=== PATIENT | female | born 1985 | race Caucasian/White ===

== ENCOUNTER 2017-01-21 08:03 | Emergency (ER) | payer BC, OTHER ==
[2017-01-21 08:22] VITALS: BP 117/83
--- NOTE | 2017-01-21 10:17 | Emergency Department Report ---
ED General Adult HPI - General Chief complaint: Skin Rash Stated complaint: VAGINAL ITCHING/BURNING Time Seen by Provider: 01/21/17 10:07 Source: patient Mode of arrival: Ambulatory Limitations: No Limitations - History of Present Illness Initial comments: PT c/o her "private area" being irritated. Pt states she shaved last week and on Tuesday she noticed one bump. PT states she has been itching and scratching and last night, she noticed more bumps with pus. PT denies hx of STD and states she had her annual exam at her OB/GYNs office last month. PT states her five year old son was just dx with staph infection and she is concerned that she may have caught it. Complaint: rash -: Gradual, week(s) (1) Location: genitals Severity scale (0 -10): 0 Quality: other (pt denies pain but states itching is 10/10 ) Consistency: constant Improves with: none Associated Symptoms: denies: fever/chills, nausea/vomiting Treatments Prior to Arrival: none - Related Data Previous Rx's Medication Instructions Recorded Last Taken Type Sulfamethoxazole/Trimethoprim 1 each PO BID #14 tablet 01/21/17 Unknown Rx [Bactrim DS TAB] methOCARBAMOL [Robaxin TAB] 500 mg PO Q6H PRN #15 tablet 01/21/17 Unknown Rx Allergies Allergy/AdvReac Type Severity Reaction Status Date / Time No Known Allergies Allergy Verified 01/22/15 07:28 ED Review of Systems ROS: Stated complaint: VAGINAL ITCHING/BURNING Other details as noted in HPI Comment: All other systems reviewed and negative Constitutional: denies: fever, malaise Gastrointestinal: denies: abdominal pain, nausea, vomiting Genitourinary: denies: abnormal menses (lmp 9-17) Skin: rash ED Past Medical Hx - Past Medical History Previous Medical History?: No - Surgical History Past Surgical History?: Yes Additional Surgical History: tonsillectomy, x 1(2010) - Social History Smoking Status: Never Smoker Substance Use Type: Alcohol - Medications Home Medications: Home Medications Medication Instructions Recorded Confirmed Last Taken Type Sulfamethoxazole/Trimethoprim 1 each PO BID #14 tablet 01/21/17 Unknown Rx [Bactrim DS TAB] methOCARBAMOL [Robaxin TAB] 500 mg PO Q6H PRN #15 tablet 01/21/17 Unknown Rx ED Physical Exam - General Limitations: No Limitations General appearance: alert, in no apparent distress - Head Head exam: Present: atraumatic, normocephalic, normal inspection - Eye Eye exam: Present: normal appearance, PERRL, EOMI. Absent: conjunctival injection - ENT ENT exam: Present: normal exam, mucous membranes moist, normal external ear exam - Neck Neck exam: Present: normal inspection, full ROM - Respiratory Respiratory exam: Present: normal lung sounds bilaterally. Absent: respiratory distress, wheezes - Cardiovascular Cardiovascular Exam: Present: regular rate, normal rhythm, normal heart sounds - GI/Abdominal GI/Abdominal exam: Present: soft. Absent: distended, tenderness, guarding, rebound - External exam: Present: other (left inguinal canal with folliculitis. scattered areas of circular areas of broken skin, all seem to be surrounding a hair follicle ) - Extremities Exam Extremities exam: Present: normal inspection, full ROM, normal capillary refill - Back Exam Back exam: Present: normal inspection, full ROM. Absent: tenderness, CVA tenderness (R), CVA tenderness (L) - Neurological Exam Neurological exam: Present: alert, oriented X3, normal gait - Psychiatric Psychiatric exam: Present: normal affect, normal mood - Skin Skin exam: Present: warm, dry, normal color, rash. Absent: intact ED Course Vital Signs 01/21/17 08:10 Temperature 98.2 F Pulse Rate 94 H Respiratory 18 Rate Blood Pressure 117/83 O2 Sat by Pulse 100 Oximetry - Reevaluation(s) Reevaluation #1: 01/21/17 10:20 PT's TDAP vaccine is up to date 01/21/17 10:20 PT aware of plan of care. Reevaluation #2: 01/21/17 12:13 Swab available for HSV culture now. PT tolerated collection well. PT states from sitting on hospital stretcher, she aggravated her low back. PT States she gets frequent episodes of low back pain from frequent lifting at work. PT states she was seen by UC 3 weeks ago and given Ultram. PT states Ultram did not help. PT does not have any saddle anesthesia. PT denies incontinence. lumbar paraspinal muscles tender at this time. PT aware will given RX for Robaxin. PT advised to avoid lifting heavy objects in the next few days. - Pulse Oximetry Interpretation Digit-Finger Initial Pulse Oximetry Readin Actions Taken: none ED Medical Decision Making - Differential Diagnosis hsv, folliculitis Critical Care Time: No Critical care attestation.: If time is entered above; I have spent that time in minutes in the direct care of this critically ill patient, excluding procedure time. ED Disposition Clinical Impression: Folliculitis Low back pain Qualifiers: Chronicity: acute Back pain laterality: bilateral Sciatica presence: without sciatica Qualified Code(s): M54.5 - Low back pain Disposition: TO HOME OR SELFCARE Is pt being admited?: No Does the pt Need Aspirin: No Condition: Stable Instructions: Low Back Strain (ED), Acute Low Back Pain (ED), Folliculitis (ED) Additional Instructions: No shaving - throw out your razor Warm compresses Do not pick at rash You can take OTC Benadryl for the itching No driving or Alcohol after taking Robaxin follow up with PCP in 3-5 days Follow up with medial records in 3-5 days to obtain copies of your lab work Prescriptions: methOCARBAMOL [Robaxin TAB] 500 mg PO Q6H PRN #15 tablet PRN Reason: Muscle Spasm Sulfamethoxazole/Trimethoprim [Bactrim DS TAB] 1 each PO BID #14 tablet Referrals: PRIMARY CARE, [Primary Care Provider] - 3-5 Days PANCHO OAKES MD [Staff Physician] - 3-5 Days KAMINI PARSON MD [Staff Physician] - 3-5 Days [facility] [Outside] - 3-5 Days [facility] [Outside] - 3-5 Days Time of Disposition: 12:17
== END 2017-01-21 12:32 | disposition home or self-care (01) ==
LOC: ED 08:03
DX: L73.9 Follicular disorder, unspecified (principal); M54.5 Low back pain
CPT/HCPCS: 36415; 87255; 99283

== ENCOUNTER 2018-12-17 10:50 | Emergency (ER) | payer SELFPAY ==
[2018-12-17 10:58] VITALS: BP 123/82
[2018-12-17] MEDS ORDERED: TORADOL IM ONE (12:07)
[2018-12-17] MEDS ORDERED: CLEOCIN PO ONE (12:07)
--- NOTE | 2018-12-17 12:07 | Emergency Department Report ---
Upper Extremity - HPI Chief Complaint: Extremity Injury, Upper Stated Complaint: SPIDER BITE/(R) ARM PAIN Time Seen by Provider: 12/17/18 12:02 Upper Extremity: Right Arm (redness and swelling from insect bite) Occurred When: 1 Day Mechanism: Other (possible spider bite) Severity: severe (8/10) Symptoms: Yes Pain with Movement (right arm), Yes Limited Range of Movement, Yes Swelling (redness), No Deformity, No Numbness, No Weakness, No Bruisi ng/Ecchymosis, No Laceration or Abrasion Other History: 33-year-old patient reported that she thinks she has been bitten by a spider but not sure to her right arm and reports that she woke up today and her arm was red swollen and painful. Pain is 8/10 throbbing and aching. No medication taken. Denies any fever or chills. Denies any nausea or vomiting. Denies any numbness or tingling to extremities or radiation of pain to extremity. Denies any difficulty moving fingers of both hands. ED Review of Systems ROS: Stated complaint: SPIDER BITE/(R) ARM PAIN Other details as noted in HPI Constitutional: denies: chills, fever ENT: denies: throat pain Respiratory: denies: cough, shortness of breath, wheezing Cardiovascular: denies: chest pain, palpitations, edema, syncope Gastrointestinal: denies: abdominal pain, nausea, vomiting Musculoskeletal: arthralgia. denies: back pain, joint swelling, myalgia Skin: rash, change in color Neurological: denies: headache, numbness, paresthesias, confusion, abnormal gait, vertigo ED Past Medical Hx - Past Medical History Previous Medical History?: No Hx Arthritis: No Hx Asthma: No - Surgical History Past Surgical History?: Yes Additional Surgical History: tonsillectomy, x 1(2010) - Family History Family history: no significant - Social History Smoking Status: Never Smoker Substance Use Type: Alcohol - Medications Home Medications: Home Medications Medication Instructions Recorded Confirmed Last Taken Type Sulfamethoxazole/Trimethoprim 1 each PO BID #14 tablet 01/21/17 Unknown Rx [Bactrim DS TAB] methOCARBAMOL [Robaxin TAB] 500 mg PO Q6H PRN #15 tablet 01/21/17 Unknown Rx Acetaminophen/Codeine [Tylenol 1 tab PO Q6H PRN #12 tab 12/17/18 Unknown Rx /Codeine # 3 tab] Clindamycin [Clindamycin CAP] 300 mg PO Q8H 10 Days #30 cap 12/17/18 Unknown Rx Ibuprofen [Motrin] 800 mg PO Q8HR PRN #12 tablet 12/17/18 Unknown Rx Upper Extremity Exam - Exam General: Vital signs noted. No distress. Alert and acting appropriately. This is a 33-year-old female well-nourished well-developed in no acute distress Head and Torso: No HEENT Abnormality, No Neck Tenderness, No Chest/Lungs Abnormality, No Abdominal Tenderness, No Back Tenderness Shoulder Exam: Yes Normal Range of Motion in Shoulder, No Shoulder Tenderness, No Clavicle Tenderness, No Shoulder Deformity, No AC Joint Tenderness Arm Exam: No Arm Deformity Elbow: Yes Normal Range of Motion in Elbow, No Elbow Tenderness, No Elbow Deformity Forearm: Yes Pain with Supination (to up her arm), No Forearm Tenderness, No Forearm Deformity, No Pain with Pronation Wrist: Yes Normal ROM in Wrist, No Wrist Tenderness, No Wrist Deformity, No Snuf fbox Tenderness, No Pain with Axial Thumb Compression Hand: Yes Digit Tenderness, Yes Normal ROM in Digit(s), No Hand Tenderness, No Hand Deformity, No Digit(s) Deformity (patient able to move all her fingers without any rigidity. No tenderness to palpate the fingers or hands and bilaterally.), No Tendon Dysfunction CMS Exam: Yes Normal Distal Pulses (radial and ulnar pulses are 2+ bilaterally), Yes Normal Capillary Refill (less than 2 seconds), Yes Normal Distal Sensation, No Broken Skin Front/Back of Body, Lg (Color): 1 - Noted 6x 6 , erythema area with mils sweling to rt arm proximally.Point of entru noted. TTP ED Course Vital Signs 12/17/18 10:56 Temperature 98.7 F Pulse Rate 72 Respiratory 18 Rate Blood Pressure 123/82 O2 Sat by Pulse 100 Oximetry - Reevaluation(s) Reevaluation #1: 12/17/18 13:07 Patient received Toradol 60 mg IM, Decadron 10 mg IM and started on clindamycin 600 mg when necessary emergency room. Her pain is better and she had no adverse reaction from medication Reevaluation #2: 12/17/18 13:57 Patient is stable and in no acute distress ED Medical Decision Making - Medical Decision Making This is a 33-year-old female here status post unknown insect bite with redness and swelling and pain to right proximal arm. She has no signs of adenitis or tenosynovitis. She was given clindamycin to start antibiotic treatment and Toradol and Decadron in the emergency room and observed without any adverse reaction. Pain was down to 2/10 prior to discharge. No increasing redness. Discussed the patient diagnosis and treatment plan and that she needs to follow- up with primary care physician tomorrow or return to the emergency room if she develops increasing redness, swelling, fever and/or chills, numbness or tingling to extremities, stiffness to her hands and fingers with difficulty making a fist and/or any change in color of her affected extremity and she voiced understanding. Patient discharged home in stable condition with prescription for clindamycin, Tylenol No. 3 and Motrin. Critical care attestation.: If time is entered above; I have spent that time in minutes in the direct care of this critically ill patient, excluding procedure time. ED Disposition Clinical Impression: Cellulitis of right arm, Arm pain, right Insect bite Qualifiers: Encounter type: initial encounter Site of insect bite: upper arm Laterality: right Qualified Code(s): S40.861A - Insect bite (nonvenomous) of right upper arm , initial encounter Disposition: DC- TO HOME OR SELFCARE Is pt being admited?: No Does the pt Need Aspirin: No Condition: Stable Instructions: Cellulitis (ED), Arthralgia (ED) Additional Instructions: Please keep affected area clean and dry HEENT noticed, increasing redness, swelling, pain, fever and/or chills, numbness and tingling to extremity affected, difficulty moving in extremity affected include in hands and fingers please return to the emergency room SOWMYA Follow-up with your primary care physician in one to 2 days and if he do not have a primary care physician follow-up at [facility] Please see medication as prescribed and take antibiotic until complete Please take Tylenol 3 as prescribed for moderate to severe pain if Motrin does not help with pain. Please do not drive or operate heavy machinery while taking Tylenol 3 as this medication causes drowsiness Prescriptions: Clindamycin [Clindamycin CAP] 300 mg PO Q8H 10 Days #30 cap Ibuprofen [Motrin] 800 mg PO Q8HR PRN #12 tablet PRN Reason: pain Acetaminophen/Codeine [Tylenol /Codeine # 3 tab] 1 tab PO Q6H PRN #12 tab PRN Reason: moderate to severe pain Referrals: NABILA HILL MD [Primary Care Provider] - 12/18/18 [facility] [Outside] - 12/18/18 Forms: Accompanied Note, Work/School Release Form(ED)
[2018-12-17] MEDS ORDERED: DECADRON IM STA (12:08)
== END 2018-12-17 13:56 | disposition home or self-care (01) ==
LOC: ED 10:50
DX: S40.861A Insect bite (nonvenomous) of right upper arm, initial encounter (principal); L03.113 Cellulitis of right upper limb; Z90.49 Acquired absence of other specified parts of digestive tract; Z79.899 Other long term (current) drug therapy; X58.XXXA Exposure to other specified factors, initial encounter; Y93.89 Activity, other specified; Y92.89 Other specified places as the place of occurrence of the external cause; Y99.8 Other external cause status
CPT/HCPCS: 96372; 99282; J1100; J1885

== ENCOUNTER 2019-05-17 06:44 | Emergency (ER) | payer MEDICAID ==
[2019-05-17 07:20] VITALS: BP 120/52
--- NOTE | 2019-05-17 10:19 | Emergency Department Report ---
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 She also states that she has experienced R ear ache since her hair was washed 4 days ago. She rates her pain as moderate and has been using Tylenol with no resolve. -: days(s) (4 days) Location: head, back Radiation: non-radiation Severity scale (0 -10): 5 Quality: aching Consistency: constant Improves with: immobilization Worsens with: movement Associated Symptoms: denies other symptoms Treatments Prior to Arrival: other (Tylenol) - Related Data Previous Rx's Medication Instructions Recorded Last Taken Type Sulfamethoxazole/Trimethoprim 1 each PO BID #14 tablet 01/21/17 Unknown Rx [Bactrim DS TAB] methOCARBAMOL [Robaxin TAB] 500 mg PO Q6H PRN #15 tablet 01/21/17 Unknown Rx Acetaminophen/Codeine [Tylenol 1 tab PO Q6H PRN #12 tab 12/17/18 Unknown Rx /Codeine # 3 tab] Clindamycin [Clindamycin CAP] 300 mg PO Q8H 10 Days #30 cap 12/17/18 Unknown Rx Ibuprofen [Motrin] 800 mg PO Q8HR PRN #12 tablet 12/17/18 Unknown Rx Ciprofloxacin/Hydrocortisone 3 drop OT BID 10 Days #1 bottle 05/17/19 Unknown Rx [Ciprofloxacin HC OTIC] Cyclobenzaprine HCl [Flexeril 5 MG 5 mg PO TID #10 tab 05/17/19 Unknown Rx TAB] Ibuprofen [Motrin 600 MG tab] 600 mg PO Q8H PRN 7 Days #21 tablet 05/17/19 Unknown Rx Allergies Allergy/AdvReac Type Severity Reaction Status Date / Time No Known Allergies Allergy Verified 01/22/15 07:28 ED Review of Systems ROS: Stated complaint: RIGHT EARACHE,LOWER BACK PAIN FROM WORK Other details as noted in HPI Comment: All other systems reviewed and negative ENT: as per HPI Musculoskeletal: as per HPI ED Past Medical Hx - Past Medical History Previous Medical History?: No Hx Arthritis: No Hx Asthma: No - Surgical History Past Surgical History?: Yes Additional Surgical History: tonsillectomy, x 1(2010) - Social History Smoking Status: Never Smoker Substance Use Type: Alcohol - Medications Home Medications: Home Medications Medication Instructions Recorded Confirmed Last Taken Type Sulfamethoxazole/Trimethoprim 1 each PO BID #14 tablet 01/21/17 Unknown Rx [Bactrim DS TAB] methOCARBAMOL [Robaxin TAB] 500 mg PO Q6H PRN #15 tablet 01/21/17 Unknown Rx Acetaminophen/Codeine [Tylenol 1 tab PO Q6H PRN #12 tab 12/17/18 Unknown Rx /Codeine # 3 tab] Clindamycin [Clindamycin CAP] 300 mg PO Q8H 10 Days #30 cap 12/17/18 Unknown Rx Ibuprofen [Motrin] 800 mg PO Q8HR PRN #12 tablet 12/17/18 Unknown Rx Ciprofloxacin/Hydrocortisone 3 drop OT BID 10 Days #1 bottle 05/17/19 Unknown Rx [Ciprofloxacin HC OTIC] Cyclobenzaprine HCl [Flexeril 5 MG 5 mg PO TID #10 tab 05/17/19 Unknown Rx TAB] Ibuprofen [Motrin 600 MG tab] 600 mg PO Q8H PRN 7 Days #21 tablet 05/17/19 Unknown Rx ED Physical Exam - General Limitations: No Limitations General appearance: alert, in no apparent distress - Head Head exam: Present: atraumatic, normocephalic - Eye Eye exam: Present: normal appearance, PERRL, EOMI - ENT ENT exam: Present: normal exam, normal orophraynx, other (R TM erythema and external canal tenderness; L external ear canal has white discharge present) - Neck Neck exam: Present: normal inspection, full ROM. Absent: tenderness - Respiratory Respiratory exam: Present: normal lung sounds bilaterally. Absent: respiratory distress, wheezes - Cardiovascular Cardiovascular Exam: Present: regular rate, normal rhythm, normal heart sounds - GI/Abdominal GI/Abdominal exam: Present: soft. Absent: distended, tenderness - Rectal Rectal exam: Present: deferred - Extremities Exam Extremities exam: Present: normal inspection, full ROM. Absent: tenderness - Back Exam Back exam: Present: full ROM (decreased back flexion and lateral rotation), vertebral tenderness (lower lumbar tenderness). Absent: CVA tenderness (R), CVA tenderness (L) - Neurological Exam Neurological exam: Present: alert, altered, oriented X3, normal gait - Psychiatric Psychiatric exam: Present: normal affect, normal mood. 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 She also states that she has experienced R ear ache since her hair was washed 4 days ago. She rates her pain as moderate and has been using Tylenol with no resolve. Pt was explained that her lower back tenderness and decreased ROM is the result of muscle strain; she was also told that she has Otitis externa bilaterally. She was explained that she will be given Flexeril, Ibuprofen and Cipro ear drops. Pt was instructed to not lift heavy objects, drink, or drive while on Flexeril muscle relaxant. Pt verbalized understanding and agreed with the plan of care. See ER as needed. Critical care attestation.: If time is entered above; I have spent that time in minutes in the direct care of this critically ill patient, excluding procedure time. ED Disposition Clinical Impression: Lumbago, Otitis externa Disposition: - TO HOME OR SELFCARE Is pt being admited?: No Does the pt Need Aspirin: No Condition: Stable Instructions: Low Back Strain (ED), Otitis Externa (ED) Additional Instructions: Pt was explained that her lower back tenderness and decreased ROM is the result of muscle strain; she was also told that she has Otitis externa bilaterally. She was explained that she will be given Flexeril, Ibuprofen and Cipro ear drops. Pt was instructed to not lift heavy objects, drink, or drive while on Flexeril muscle relaxant. Pt verbalized understanding and agreed with the plan of care. F/U with PCP in 3-5 days.See ER as needed. Prescriptions: Ciprofloxacin/Hydrocortisone [Ciprofloxacin HC OTIC] 3 drop OT BID 10 Days #1 bottle Cyclobenzaprine HCl [Flexeril 5 MG TAB] 5 mg PO TID #10 tab Ibuprofen [Motrin 600 MG tab] 600 mg PO Q8H PRN 7 Days #21 tablet PRN Reason: Pain Referrals: CASANDRA MADDOX MD [Primary Care Provider] - 3-5 Days [facility] [Outside] - 3-5 Days Time of Disposition: 10:33
== END 2019-05-17 10:45 | disposition home or self-care (01) ==
LOC: ED 06:44
DX: H60.91 Unspecified otitis externa, right ear (principal); M54.5 Low back pain; Z90.89 Acquired absence of other organs; Z79.899 Other long term (current) drug therapy

== ENCOUNTER 2019-07-12 01:45 | Emergency (ER) | payer MEDICAID ==
[2019-07-12 02:32] VITALS: BP 128/95
[2019-07-12] MEDS ORDERED: HYDROcodone/ACETAMINOPHEN 5-325 MG TAB PO STA (04:04)
--- NOTE | 2019-07-12 04:45 | Emergency Department Report ---
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 denies: confusion, weakness, numbness, constipation, headaches - Related Data Previous Rx's Medication Instructions Recorded Last Taken Type Sulfamethoxazole/Trimethoprim 1 each PO BID #14 tablet 01/21/17 Unknown Rx [Bactrim DS TAB] methOCARBAMOL [Robaxin TAB] 500 mg PO Q6H PRN #15 tablet 01/21/17 Unknown Rx Acetaminophen/Codeine [Tylenol 1 tab PO Q6H PRN #12 tab 12/17/18 Unknown Rx /Codeine # 3 tab] Clindamycin [Clindamycin CAP] 300 mg PO Q8H 10 Days #30 cap 12/17/18 Unknown Rx Ibuprofen [Motrin] 800 mg PO Q8HR PRN #12 tablet 12/17/18 Unknown Rx Ciprofloxacin/Hydrocortisone 3 drop OT BID 10 Days #1 bottle 05/17/19 Unknown Rx [Ciprofloxacin HC OTIC] Cyclobenzaprine HCl [Flexeril 5 MG 5 mg PO TID #10 tab 05/17/19 Unknown Rx TAB] Ibuprofen [Motrin 600 MG tab] 600 mg PO Q8H PRN 7 Days #21 tablet 05/17/19 Unknown Rx Ketorolac [Toradol] 10 mg PO Q6H PRN #15 tablet 07/12/19 Unknown Rx methOCARBAMOL [Robaxin TAB] 750 mg PO Q8H PRN #14 tablet 07/12/19 Unknown Rx Allergies Allergy/AdvReac Type Severity Reaction Status Date / Time No Known Allergies Allergy Verified 01/22/15 07:28 ED Review of Systems ROS: Stated complaint: PULL MUSCLE UPPER/LOWER BACK Other details as noted in HPI ED Past Medical Hx - Past Medical History Hx Arthritis: No Hx Asthma: No - Surgical History Additional Surgical History: tonsillectomy, x 1(2010) - Social History Smoking Status: Never Smoker Substance Use Type: None - Medications Home Medications: Home Medications Medication Instructions Recorded Confirmed Last Taken Type Sulfamethoxazole/Trimethoprim 1 each PO BID #14 tablet 01/21/17 Unknown Rx [Bactrim DS TAB] methOCARBAMOL [Robaxin TAB] 500 mg PO Q6H PRN #15 tablet 01/21/17 Unknown Rx Acetaminophen/Codeine [Tylenol 1 tab PO Q6H PRN #12 tab 12/17/18 Unknown Rx /Codeine # 3 tab] Clindamycin [Clindamycin CAP] 300 mg PO Q8H 10 Days #30 cap 12/17/18 Unknown Rx Ibuprofen [Motrin] 800 mg PO Q8HR PRN #12 tablet 12/17/18 Unknown Rx Ciprofloxacin/Hydrocortisone 3 drop OT BID 10 Days #1 bottle 05/17/19 Unknown Rx [Ciprofloxacin HC OTIC] Cyclobenzaprine HCl [Flexeril 5 MG 5 mg PO TID #10 tab 05/17/19 Unknown Rx TAB] Ibuprofen [Motrin 600 MG tab] 600 mg PO Q8H PRN 7 Days #21 tablet 05/17/19 Unk nown Rx Ketorolac [Toradol] 10 mg PO Q6H PRN #15 tablet 07/12/19 Unknown Rx methOCARBAMOL [Robaxin TAB] 750 mg PO Q8H PRN #14 tablet 07/12/19 Unknown Rx ED Physical Exam - General Limitations: Language Barrier ED Course Vital Signs 07/12/19 01:59 Temperature 98.5 F Pulse Rate 92 H Respiratory 12 Rate Blood Pressure 128/95 O2 Sat by Pulse 98 Oximetry Critical care attestation.: If time is entered above; I have spent that time in minutes in the direct care of this critically ill patient, excluding procedure time. ED Disposition Clinical Impression: Thoracic back sprain Disposition: DC-01 TO HOME OR SELFCARE Is pt being admited?: No Does the pt Need Aspirin: No Condition: Stable Instructions: Back Pain (ED) Prescriptions: methOCARBAMOL [Robaxin TAB] 750 mg PO Q8H PRN #14 tablet PRN Reason: Pain, Moderate (4-6) Ketorolac [Toradol] 10 mg PO Q6H PRN #15 tablet PRN Reason: Pain Referrals: MARYA HARMON MD [Staff Physician] - 3-5 Days
== END 2019-07-12 04:42 | disposition home or self-care (01) ==
LOC: ED 01:45
DX: S23.3XXA Sprain of ligaments of thoracic spine, initial encounter (principal); Z79.1 Long term (current) use of non-steroidal anti-inflammatories (NSAID); Z79.899 Other long term (current) drug therapy; X58.XXXA Exposure to other specified factors, initial encounter; Y93.89 Activity, other specified; Y92.89 Other specified places as the place of occurrence of the external cause; Y99.8 Other external cause status
CPT/HCPCS: 99282